=== PATIENT | female | born 1975 | race Caucasian/White ===

== ENCOUNTER → 2018-12-01 | Outpatient (CLI) | payer BC ==
--- NOTE | 2018-12-05 08:44 | MM ---
Reason for exam: screening (asymptomatic). Last mammogram was performed 5 years and 3 months ago. Physical Findings: A clinical breast exam by your physician is recommended on an annual basis and results should be correlated with mammographic findings. MG 3D Screening Mammo W/Cad Bilateral CC and MLO view(s) were taken. Prior study comparison: September 05, 2013, mammogram, performed at [facility]. The breast tissue is extremely dense which could obscure a lesion on mammography. No significant changes when compared with prior studies. ASSESSMENT: Benign, BI-RAD 2 RECOMMENDATION: Routine screening mammogram of both breasts in 1 year.
== END ==
LOC: RADMAMWWP 08:08
PROVIDERS: ATTEND Obstetrics & Gynecology
DX: Z12.31 Encounter for screening mammogram for malignant neoplasm of breast (principal)
CPT/HCPCS: 77063; 77067

== ENCOUNTER 2019-07-30 18:57 | Emergency (ER) | payer BC ==
[2019-07-30 19:02] VITALS: TEMP 97.7
--- NOTE | 2019-07-30 19:15 | ED ---
General Adult HPI - General Chief complaint: Recheck/Abnormal Lab/Rx Stated complaint: High blood pressure Time Seen by Provider: 07/30/19 19:04 Source: patient, RN notes reviewed, old records reviewed Mode of arrival: ambulatory Limitations: no limitations - History of Present Illness Initial comments: 44-year-old female patient with no pertinent past medical history presents to ED for evaluation of hypertension. Patient reports that she was seen in her primary care providers for a well visit at approximately 6 PM. Patient reports that she had elevated blood pressure readings at this visit. Patient denies any history of hypertension. Patient reports that the blood pressure came to be elevated she was administered one dose of Catapres, was recommended he come to the emergency department. Patient denies any complaints of this time. Denies any chest pain shortness of breath headache changes in vision nausea vomiting abdominal pain. Systemic: Pt denies fatigue, fever/chills, rash. Pt denies weakness, night sweats, weight loss. Neuro: Pt denies headache, visual disturbances, syncope or pre-syncope. HEENT: Pt denies ocular discharge or irritation, otalgia, rhinorrhea, pharyngitis or notable lymphadenopathy. Cardiopulmonary: Pt denies chest pain, SOB, heart palpitations, dyspnea on exertion. Abdominal/GI: Pt denies abdominal pain, n/v/d. : Pt denies dysuria, burning w/ urination, frequency/urgency. Denies new onset urinary or bowel incontinence. MSK: Pt denies myalgia, loss of strength or function in extremities. Neuro: Pt denies new onset weakness, paresthesias. - Related Data Home Medications Medication Instructions Recorded Confirmed Norethindrone-E.estradiol-Iron 1 tab PO HS 07/30/19 07/30/19 [Junel Fe 1 mg-20 Mcg Tablet] Previous Rx's Medication Instructions Recorded amLODIPine [Norvasc] 5 mg PO DAILY 7 Days #7 tab 07/30/19 Allergies Allergy/AdvReac Type Severity Reaction Status Date / Time No Known Allergies Allergy Verified 07/30/19 19:18 Review of Systems ROS Statement: Those systems with pertinent positive or pertinent negative responses have been documented in the HPI. ROS Other: All systems not noted in ROS Statement are negative. Past Medical History Past Medical History: No Reported History History of Any Multi-Drug Resistant Organisms: None Reported Past Surgical History: Appendectomy, Cholecystectomy Past Psychological History: No Psychological Hx Reported Smoking Status: Never smoker Past Alcohol Use History: Occasional Past Drug Use History: None Reported General Exam - General Exam Comments Initial Comments: Constitutional: NAD, AOX3, Pt has pleasant affect. HEENT: NC/AT, trachea midline, neck supple, no lymphadenopathy. Posterior pharynx non erythematous, without exudates. External ears appear normal, without discharge. Mucous membranes moist. Eyes PERRLA, EOM intact. There is no scleral icterus. No pallor noted. Cardiopulmonary: RRR, no murmurs, rubs or gallops, no JVD noted. Lungs CTAB in anterior and posterior blanco. No peripheral edema. Abdominal exam: Abdomen soft and non-distended. Abdomen non-tender to palpation in all 4 quadrants. Bowel sounds active in LLQ. No hepatosplenomegaly. No ecchymosis Neuro: CN II-XII intact. No nuchal rigidity. No raccon eyes, no garza sign, no hemotympanum. No cervical spinal tenderness. MSK: No posterior calf tenderness bilaterally, homans sign negative bilaterally. Posterior tibialis and radial pulse +2 bilaterally. Sensation intact in upper and lower extremities. Full active ROM in upper and lower extremities, 5/5 stregnth. Limitations: no limitations Course Vital Signs 07/30/19 07/30/19 07/30/19 18:58 19:45 20:11 Temperature 97.7 F Pulse Rate 83 81 81 Respiratory 16 20 20 Rate Blood Pressure 190/90 173/100 169/89 O2 Sat by Pulse 100 99 100 Oximetry 07/30/19 07/30/19 07/30/19 20:25 20:31 20:54 Temperature Pulse Rate 71 71 69 Respiratory 20 20 20 Rate Blood Pressure 184/96 184/94 178/91 O2 Sat by Pulse 97 98 99 Oximetry 07/30/19 07/30/19 21:00 21:30 Temperature Pulse Rate 67 87 Respiratory 18 20 Rate Blood Pressure 176/89 165/84 O2 Sat by Pulse 100 97 Oximetry Medical Decision Making - Medical Decision Making 44-year-old female patient with no pertinent past medical history presents to ED for evaluation of hypertension. Patient reports that she was seen in her primary care providers for a well visit at approximately 6 PM. Patient reports that she had elevated blood pressure readings at this visit. Patient denies any history of hypertension. Patient reports that the blood pressure came to be elevated she was administered one dose of Catapres, was recommended he come to the emergency department. Patient denies any complaints of this time. Denies any chest pain shortness of breath headache changes in vision nausea vomiting abdominal pain. Patient vital signs initially displayed hypertension 190/90. Patient ministered labetalol and then hydralazine. Patient blood pressure 160/84. Physical exam didn't display acute pathology. Neurologic exam within normal limits 2. O2 investigations noncompressive. Troponin negative. EKG not concerning for acute ischemia. She continues to be asymptomatic. Patient was discharged with [facility] will follow up with primary care bride tomorrow. Return to ER physician worsens. Case discussed with Dr. Anne. - Lab Data Result diagrams: 07/30/19 19:18 07/30/19 19:18 Lab Results 07/30/19 07/30/19 07/30/19 Range/Units 19:18 19:18 19:18 WBC 10.5 (3.8-10.6) k/uL RBC 4.38 (3.80-5.40) m/uL Hgb 13.8 (11.4-16.0) gm/dL Hct 40.0 (34.0-46.0) % MCV 91.3 (80.0-100.0) fL MCH 31.5 (25.0-35.0) pg MCHC 34.5 (31.0-37.0) g/dL RDW 12.5 (11.5-15.5) % Plt Count 241 (150-450) k/uL Neutrophils % 64 % Lymphocytes % 29 % Monocytes % 4 % Eosinophils % 1 % Basophils % 1 % Neutrophils # 6.7 (1.3-7.7) k/uL Lymphocytes # 3.0 (1.0-4.8) k/uL Monocytes # 0.4 (0-1.0) k/uL Eosinophils # 0.1 (0-0.7) k/uL Basophils # 0.1 (0-0.2) k/uL Sodium 139 (137-145) mmol/L Potassium 3.7 (3.5-5.1) mmol/L Chloride 101 (98-107) mmol/L Carbon Dioxide 25 (22-30) mmol/L Anion Gap 13 mmol/L BUN 17 (7-17) mg/dL Creatinine 0.77 (0.52-1.04) mg/dL Est GFR (CKD-EPI)AfAm >90 (>60 ml/min/1.73 sqM) Est GFR (CKD-EPI)NonAf >90 (>60 ml/min/1.73 sqM) Glucose 97 (74-99) mg/dL Calcium 9.3 (8.4-10.2) mg/dL Total Bilirubin 0.4 (0.2-1.3) mg/dL AST 43 H (14-36) U/L ALT 31 (9-52) U/L Alkaline Phosphatase 94 (38-126) U/L Troponin I <0.012 (0.000-0.034) ng/mL Total Protein 8.7 H (6.3-8.2) g/dL Albumin 4.6 (3.5-5.0) g/dL - EKG Data -: EKG Interpreted by Me (and Dr. Sandoval) EKG Comments: Ventricular rate 66, OH interval 154, QRS 88, QT/QTC 394/413. NSR, normal EKG, no concern for acute ischemia. Disposition Clinical Impression: Hypertension Disposition: HOME SELF-CARE Condition: Stable Instructions (If sedation given, give patient instructions): Hypertension (ED) Additional Instructions: Patient to adhere to previously discussed treatment plan and will take medication(s) as directed. Patient to follow up with PCP in 1-2 days. Patient to return to ED if symptoms do not improve. Call primary care provider first thing tomorrow morning. Take medication as directed unless instructed otherwise by your PCP. Prescriptions: amLODIPine [Norvasc] 5 mg PO DAILY 7 Days #7 tab Is patient prescribed a controlled substance at d/c from ED?: No Referrals: Fernando Saenz DO [Primary Care Provider] - 1-2 days
[2019-07-30 19:29] LABS: Basophils # (A) 0.1 k/uL (0-0.2); Basophils % (A) 1 %; Eosinophils # (A) 0.1 k/uL (0-0.7); Eosinophils % (A) 1 %; HGB 13.8 gm/dL (11.4-16.0); Lymphocytes % (A) 29 %; MCH 31.5 pg (25.0-35.0); MCHC 34.5 g/dL (31.0-37.0); MCV 91.3 fL (80.0-100.0); Mean Platelet Volume 6.3; Monocytes # (A) 0.4 k/uL (0-1.0); Monocytes % (A) 4 %; Neutrophils # (A) 6.7 k/uL (1.3-7.7); Neutrophils % (A) 64 %; Platelet Count 241 k/uL (150-450); RBC 4.38 m/uL (3.80-5.40); RDW 12.5 % (11.5-15.5); WBC 10.5 k/uL (3.8-10.6)
[2019-07-30 19:45] LABS: ALT 31 U/L (9-52); AST 43 U/L (14-36); African American GFR (CKD) >90 (>60 ml/min/1.73 sqM); Albumin 4.6 g/dL (3.5-5.0); Alkaline Phosphatase 94 U/L (38-126); Anion Gap 13 mmol/L; Blood Urea Nitrogen 17 mg/dL (7-17); Calcium 9.3 mg/dL (8.4-10.2); Carbon Dioxide 25 mmol/L (22-30); Chloride 101 mmol/L (98-107); Glucose 97 mg/dL (74-99); Potassium 3.7 mmol/L (3.5-5.1); Sodium 139 mmol/L (137-145); Total Bilirubin 0.4 mg/dL (0.2-1.3); Total Protein 8.7 g/dL (6.3-8.2)
[2019-07-30] MEDS ORDERED: LABETALOL 5 MG/ML VIAL MDV IVP STA (19:57)
[2019-07-30] MEDS ORDERED: hydrALAZINE HCL 20 MG/ML 1 ML VIAL IVP STA (20:54)
[2019-07-30 21:31] VITALS: BP 165/84; PULSE 87; RESP 20
== END 2019-07-30 21:58 | disposition home or self-care (01) ==
LOC: EC 18:57
DX: I10 Essential (primary) hypertension (principal)
CPT/HCPCS: 36415; 93005; 80053; 84484; 85025; 99284; 96374; 96375; J0360

== ENCOUNTER → 2019-07-31 | Outpatient (CLI) | payer BC ==
--- NOTE | 2019-07-31 20:44 | XR ---
EXAMINATION TYPE: XR chest 2V DATE OF EXAM: 07/31/2019 COMPARISON: NONE HISTORY: Hypertension, cough and dyspnea TECHNIQUE: Frontal and lateral views of the chest are obtained. FINDINGS: Patient is rotated. There is bronchial wall thickening. There is no focal air space opacity , pleural effusion, or pneumothorax seen. The cardiac silhouette size is within normal limits. The osseous structures are intact. IMPRESSION: Correlate for bronchitis, reactive airways disease. Follow-up as indicated.
== END | disposition home or self-care (01) ==
LOC: RADXRYALE 15:14
PROVIDERS: ATTEND Physician Assistant Medical
DX: R05 Cough (principal); R06.00 Dyspnea, unspecified; I10 Essential (primary) hypertension
CPT/HCPCS: 71046

== ENCOUNTER → 2019-08-02 | Outpatient (CLI) | payer BC ==
--- NOTE | 2019-08-02 18:27 | ECHOF ---
Referral Reason:R06.00 Dyspnea; R05 cough; I10 Hypertension MEASUREMENTS -------- HEIGHT: 162.6 cm WEIGHT: 72.6 kg BP: 138/82 RVIDd: 2.7 cm (< 3.3) IVSd: 1.1 cm (0.6 - 1.1) LVIDd: 4.3 cm (3.9 - 5.3) LVPWd: 0.9 cm (0.6 - 1.1) IVSs: 1.5 cm LVIDs: 2.3 cm LVPWs: 1.4 cm LA Diam: 3.0 cm (2.7 - 3.8) LAESV Index (A-L): 19.51 ml/m Ao Diam: 2.7 cm (2.0 - 3.7) AV Cusp: 1.9 cm (1.5 - 2.6) MV EXCURSION: 14.664 mm (> 18.000) MV EF SLOPE: 62 mm/s (70 - 150) EPSS: 0.7 cm MV E Jermaine: 0.71 m/s MV DecT: 263 ms MV A Jermaine: 0.71 m/s MV E/A Ratio: 1.00 FINDINGS -------- Sinus rhythm. This was a technically good study. The left ventricular size is normal. Left ventricular wall thickness is normal. Overall left vent ricular systolic function is normal with, an EF between 60 - 65 %. The diastolic filling pattern is normal for the age of the patient 11.85. The right ventricle is normal in size. Normal LA size by volume 22+/-6 ml/m2. The right atrium is normal in size. Interatrial and interventricular septum intact. The aortic valve is trileaflet and appears structurally normal. The mitral valve is normal. The tricuspid valve appears structurally normal. There is no pulmonic regurgitation present. The aortic root size is normal. Normal inferior vena cava with normal inspiratory collapse consistent with estimated right atrial pre ssure of 5 mmHg. There is no pericardial effusion. CONCLUSIONS -------- 1. Sinus rhythm. 2. This was a technically good study. 3. The left ventricular size is normal. 4. Left ventricular wall thickness is normal. 5. Overall left ventricular systolic function is normal with, an EF between 60 - 65 %. 6. The diastolic filling pattern is normal for the age of the patient 11.85 7. The right ventricle is normal in size. 8. Normal LA size by volume 22+/-6 ml/m2. 9. The right atrium is normal in size. 10. Interatrial and interventricular septum intact. 11. The aortic valve is trileaflet and appears structurally normal. 12. The mitral valve is normal. 13. The tricuspid valve appears structurally normal. 14. There is no pulmonic regurgitation present. 15. The aortic root size is normal. 16. Normal inferior vena cava with normal inspiratory collapse consistent with estimated right atrial pressure of 5 mmHg. 17. There is no pericardial effusion. BIOSECURITY OFFICER: Iona Lima RDCS
== END | disposition home or self-care (01) ==
LOC: RADECHMAIN 15:16
PROVIDERS: ATTEND Family Medicine
DX: R06.00 Dyspnea, unspecified (principal); I10 Essential (primary) hypertension; R05 Cough
CPT/HCPCS: 93306

== ENCOUNTER → 2022-05-25 | Outpatient (CLI) | payer MEDICAID ==
--- NOTE | 2022-05-26 15:07 | MM ---
Reason for Exam: Screening (asymptomatic). Last mammogram was performed 3 year(s) and 6 month(s) ago. Patient History: Menarche at age 14. First Full-Term at age 25. Patient has history of breast feeding. Last menstrual period: 04/26/2022 Risk Values: Ambika 5 year model risk: 0.9%. NCI Lifetime model risk: 9.5%. Prior Study Comparison: 09/05/2013 Screening Mammogram, [facility]. 12/01/2018 Bilateral Screening Mammogram, [facility]. Tissue Density: The breast tissue is heterogeneously dense. This may lower the sensitivity of mammography. Findings: Analyzed By CAD. Parenchymal pattern appears stable. No suspicious groups of microcalcifications, spiculated or lobular masses, architectural distortion or other secondary signs of malignancy are mammographically apparent. Overall Assessment: Benign, BI-RAD 2 Management: Screening Mammogram of both breasts in 1 year. A negative mammogram report should not preclude additional follow up of suspicious palpable abnormalities. Patient should continue monthly self breast exam. A clinical breast exam by your physician is recommended on an annual basis and results should be correlated with mammographic findings. Electronically signed and approved by: Salvador Badillo D.O. Radiologis
== END | disposition home or self-care (01) ==
LOC: RADMAMWWP 08:04
PROVIDERS: ATTEND Obstetrics & Gynecology
DX: Z12.31 Encounter for screening mammogram for malignant neoplasm of breast (principal)
CPT/HCPCS: 77063; 77067

== ENCOUNTER → 2023-05-26 | Outpatient (CLI) | payer MEDICAID ==
--- NOTE | 2023-05-27 08:27 | MM ---
Reason for Exam: Screening (asymptomatic). Last screening mammogram was performed 12 month(s) ago. Patient History: Menarche at age 14. First Full-Term at age 25. Patient has history of breast feeding. Currently using Progesterone, starting at age 47. Risk Values: Ambika 5 year model risk: 0.9%. NCI Lifetime model risk: 9.3%. Prior Study Comparison: 09/05/2013 Screening Mammogram, [facility]. 12/01/2018 Bilateral Screening Mammogram, [facility]. 05/25/2022 Bilateral MG 3D screening mammo w/cad, [facility]. Tissue Density: The breast tissue is heterogeneously dense. This may lower the sensitivity of mammography. Findings: Analyzed By CAD. Asymmetric density inner central left breast 4.7 cm from the nipple with associated distortion suggested. Additional views are recommended. No suspicious calcifications identified within either breast. Overall Assessment: Incomplete: need additional imaging evaluation, BI-RAD 0 Management: Diagnostic Mammogram of the left breast. . Patient should continue monthly self-breast exams. A clinical breast exam by your physician is recommended on an annual basis. This exam should not preclude additional follow-up of suspicious palpable abnormalities. Note on Ambika scores and lifetime risk: 1. A Ambika score greater than 3% is considered moderate risk. If this is the case, consider specialist referral to assess eligibility for a risk reducing agent. 2. If overall lifetime risk for the development of breast cancer is 20% or higher, the patient may qualify for future screening with alternating mammogram and breast MRI. Electronically signed and approved by: Bethel Davey M.D. Radiologis
== END | disposition home or self-care (01) ==
LOC: RADMAMWWP 07:23
PROVIDERS: ATTEND Obstetrics & Gynecology
DX: Z12.31 Encounter for screening mammogram for malignant neoplasm of breast (principal)
CPT/HCPCS: 77063; 77067

== ENCOUNTER → 2023-05-31 | Outpatient (CLI) | payer MEDICAID ==
--- NOTE | 2023-05-31 10:42 | MM ---
Reason for Exam: Clinical finding. Last screening mammogram was performed less than 1 month ago. Patient History: Menarche at age 14. First Full-Term at age 25. Patient has history of breast feeding. Currently using Progesterone, starting at age 47. Risk Values: Ambika 5 year model risk: 0.9%. NCI Lifetime model risk: 9.3%. Prior Study Comparison: 12/01/2018 Bilateral Screening Mammogram, [facility]. 05/25/2022 Bilateral MG 3D screening mammo w/cad, [facility]. 05/26/2023 Bilateral MG 3D screening mammo w/cad, [facility]. Tissue Density: Left: The breast tissue is heterogeneously dense. This may lower the sensitivity of mammography. Findings: Analyzed By CAD. There is partial dispersion of density within the lower inner quadrant of the left breast at anterior to middle depth. May represent superimposed breast tissue. No suspicious calcifications. Overall Assessment: Incomplete: need additional imaging evaluation, BI-RAD 0 Management: Diagnostic Breast Ultrasound of the left breast. A clinical breast exam by your physician is recommended on an annual basis and results should be correlated with mammographic findings. This exam should not preclude additional follow-up of suspicious palpable abnormalities. Results were given to the patient verbally at the time of exam. Note on Ambika scores and lifetime risk: 1. A Ambika score greater than 3% is considered moderate risk. If this is the case, consider specialist referral to assess eligibility for a risk reducing agent. If overall lifetime risk for the development of breast cancer is 20% or higher, the patient may qualify for future screening with alternating mammogram and breast MRI. Electronically signed and approved by: Odilon Laguerre D.O.
--- NOTE | 2023-05-31 11:20 | USB ---
Reason for Exam: Additional evaluation requested from abnormal screening. Patient History: Menarche at age 14. First Full-Term at age 25. Patient has history of breast feeding. Currently using Progesterone, starting at age 47. Risk Values: Ambika 5 year model risk: 0.9%. NCI Lifetime model risk: 9.3%. Technique: Method: Targeted. Prior Study Comparison: 12/01/2018 Bilateral Screening Mammogram, [facility]. 05/25/2022 Bilateral MG 3D screening mammo w/cad, [facility]. 05/26/2023 Bilateral MG 3D screening mammo w/cad, [facility]. Findings: The lower inner quadrant of the left breast, the axilla of the left breast and the retroareolar of the left breast were scanned. Targeted ultrasound left breast from 6-9 o'clock with additional evaluation of the patellas performed. No suspicious solid or cystic lesion identified. Mildly prominent ducts in the nipple region. Benign-appearing lymph node within the left axilla. Overall Assessment: Benign, BI-RAD 2 Management: Screening Mammogram of both breasts in 1 year. A clinical breast exam by your physician is recommended on an annual basis and results should be correlated with mammographic findings. This exam should not preclude additional follow-up of suspicious palpable abnormalities. Results were given to the patient verbally at the time of exam. Electronically signed and approved by: Odilon Laguerre D.O.
== END | disposition home or self-care (01) ==
LOC: RADMAMWWP 10:14
PROVIDERS: ATTEND Obstetrics & Gynecology
DX: R92.8 Other abnormal and inconclusive findings on diagnostic imaging of breast (principal)
CPT/HCPCS: 77061; 77065

== ENCOUNTER → 2023-12-21 | Outpatient (CLI) | payer OTHER ==
--- NOTE | 2023-12-22 11:59 | XR ---
EXAMINATION TYPE: XR lumbosacral spine 5 views DATE OF EXAM: 12/21/2023 Comparison: None Clinical History: 48-year-old female [id number] LBP Findings: Facet arthropathy lower lumbar spine. Vertebral body heights are preserved and alignment is maintaine d. 5 lumbar type vertebral bodies. Cholecystectomy clips. Impression: Facet arthropathy lower lumbar spine. No vertebral compression collapse or malalignment.
== END | disposition home or self-care (01) ==
LOC: RADXRYALE 15:54
PROVIDERS: ATTEND Physician Assistant Medical
DX: M47.816 Spondylosis without myelopathy or radiculopathy, lumbar region (principal); M54.51 Vertebrogenic low back pain
CPT/HCPCS: 72110

== ENCOUNTER → 2024-06-01 | Outpatient (CLI) | payer OTHER ==
--- NOTE | 2024-06-21 20:57 | MM ---
Reason for Exam: Screening (asymptomatic). Last screening mammogram was performed 12 month(s) ago. Patient History: Menarche at age 14. First Full-Term at age 25. Patient has history of breast feeding. Currently using Progesterone, starting at age 47. Last menstrual period: 05/02/2024 Risk Values: Ambika 5 year model risk: 0.9%. NCI Lifetime model risk: 9.2%. Prior Study Comparison: 05/25/2022 Bilateral MG 3D screening mammo w/cad, [facility]. 05/26/2023 Bilateral MG 3D screening mammo w/cad, [facility]. 05/31/2023 Left MG 3D work up w/cad LT, [facility]. Tissue Density: The breasts are heterogeneously dense, which may obscure small masses. Findings: Analyzed By CAD. Areas of asymmetric density are unchanged. There is no suspicious group of microcalcifications or new suspicious mass in either breast. Overall Assessment: Benign, BI-RAD 2 Management: Screening Mammogram of both breasts in 1 year. . Patient should continue monthly self-breast exams. A clinical breast exam by your physician is recommended on an annual basis. This exam should not preclude additional follow-up of suspicious palpable abnormalities. Note on Ambika scores and lifetime risk: 1. A Ambika score greater than 3% is considered moderate risk. If this is the case, consider specialist referral to assess eligibility for a risk reducing agent. 2. If overall lifetime risk for the development of breast cancer is 20% or higher, the patient may qualify for future screening with alternating mammogram and breast MRI. Electronically signed and approved by: Jimena Tomlin M.D. Radiologist
== END | disposition home or self-care (01) ==
LOC: RADMAMWWP 10:30
PROVIDERS: ATTEND Obstetrics & Gynecology
DX: Z12.31 Encounter for screening mammogram for malignant neoplasm of breast (principal); R92.323 Mammographic fibroglandular density, bilateral breasts
CPT/HCPCS: 77063; 77067

== ENCOUNTER 2024-07-13 10:28 | Day surgery (SDC) | payer OTHER ==
[2024-07-11 12:54] VITALS: BMI 27.4
[~2024-07-13 10:28] MED LIST: LIDOCAINE 1% (10MG/ML) FOR IV START INTRADERMA PRN
[2024-07-13 11:18] VITALS: TEMP 97
[2024-07-13] MEDS: LACTATED RINGERS 1,000 ML IV SCH (11:23)
[2024-07-13] MEDS: IV FLUID CONTINUATION 1,000 ML IV ONE (11:23)
[2024-07-13] MEDS ORDERED: PROPOFOL 10 MG/ML 20 ML VIAL IV ONE (12:13)
--- NOTE | 2024-07-13 12:34 | P.PCN ---
Date of Procedure: 07/13/24 Procedure(s) Performed: BRIEF HISTORY: Patient is a 49-year-old pleasant white female scheduled for an elective colonoscopy as a part of screening for colon cancer/evaluation of Crohn's disease diagnosed 2008. She has been in clinical remission. Presently on no maintenance medications. PROCEDURE PERFORMED: Colonoscopy with biopsy PREOPERATIVE DIAGNOSIS: Screening for colon cancer/history of Crohn's ileitis diagnosed in 2008. IV sedation per Anesthesia. PROCEDURE: After informed consent was obtained, the patient, was brought into the endoscopy unit. IV sedation was administered by Anesthesia under continuous monitoring. Digital rectal examination was normal. Initially the Olympus CF-160 flexible video colonoscope was then inserted in the rectum, gradually advanced into the cecum without any difficulty. Careful examination was performed as the scope was gradually being withdrawn. Ileocecal valve and the appendiceal orifice were visualized and appeared normal. Family was intubated and remaining. There was distal to middle stricture identified. However there was no erosions or ulcerations noted and multiple biopsies were done from the terminal ileum. Prep was excellent. Mucosa of the cecum, ascending colon, transverse colon, descending colon, sigmoid colon, and rectum appeared normal. Retroflexion was performed in the rectum and no lesions were seen. The patient tolerated the procedure well. IMPRESSION: Normal-appearing colon from rectum to cecum no evidence of colorectal neoplasia. Narrowing of the terminal ileum with no active Crohn's disease status post biopsies RECOMMENDATIONS: Findings of this examination were discussed with the patient as well as her family. She was advised to follow-up with the biopsy results.. Recommended repeat colonoscopy in 5 years.
[2024-07-13 12:38] VITALS: RESP 16
[2024-07-13 12:57] VITALS: BP 135/79; PULSE 70
== END 2024-07-13 13:19 | disposition home or self-care (01) ==
LOC: ORWHC2ENDO 10:28
PROVIDERS: ATTEND Internal Medicine Gastroenterology
DX: K50.90 Crohn's disease, unspecified, without complications
CPT/HCPCS: 45380; 81025; 88305